=== PATIENT | male | born 1995 | race Two or more races ===

== ENCOUNTER 2020-11-17 13:29 | Emergency (ER) | payer BC, OTHER ==
[~2020-11-17] VITALS: Ht 167.6 cm; Wt 88.6 kg
--- NOTE | 2020-11-17 14:11 | ED.ADGEN ---
Past Medical History Past Medical History: No Pertinent History Past Surgical History: No Surgical History Smoking Status: Never Smoker Alcohol Use: Occasionally Drug Use: None General Adult EDM: Chief Complaint: CHEST WALL PAIN HPI: HPI: Patient is a 24 year old male who presents with chest pain going on for the past 8 weeks. In the emerged from today because he had appointment with his primary care provider yesterday which was canceled. Patient states the pain is worse when he is laying down and exacerbated by trying to sit up. States the pain is not always there. Denies any palpitation or shortness of breath. Patient denies any trauma. Has been taking a adrenal gland supplements recommended by his chiropractor. Patient states he was told in August that his adrenal glands were not functioning properly. Denies any trauma to the chest. The pain is central. Denies any lower extremity edema, syncope, lightheadedness, exercise intolerance. States he has been more anxious and stressed recently since college. Denies any tobacco, alcohol, drug use. Family history of diabetes, no significant family history of heart disease. Review of Systems: Review of Systems: All other systems within normal limits except for as noted in the HPI Allergies: Allergies: Allergies Coded Allergies Type Severity Reaction Last Updated Verified No Known Drug Allergies 08/22/14 No Physical Exam: PE: Constitutional: Well developed, well nourished, no acute distress, non-toxic appearance. [] HENT: Normocephalic, atraumatic, bilateral external ears normal, nose normal. [] Eyes: PERRLA, conjunctiva normal, no discharge. [] Neck: No rigidity, supple, no stridor. [] Cardiovascular: Tachycardic, regular rhythm, brisk cap refill [] Lungs & Thorax: Non labored symmetric respirations, no tachypnea or respiratory distress. Lungs clear to auscultation [] Abdomen: Soft, nondistended. Skin: Warm, dry, no erythema, no rash. [] Back: Unremarkable Extremities: No deformities, range of motion grossly intact, no lower extremity edema [] Neurologic: Alert and oriented X 3, no focal deficits noted. [] Psychologic: Affect normal, judgement normal, mood normal. [] Current Patient Data: Labs: Laboratory Tests Test 11/17/20 14:10 White Blood Count 11.5 x10^3/uL (4.0-11.0) H Red Blood Count 4.75 x10^6/uL (4.30-5.70) Hemoglobin 14.9 g/dL (13.0-17.5) Hematocrit 42.4 % (39.0-53.0) Mean Corpuscular Volume 89 fL (79-100) Mean Corpuscular Hemoglobin 31 pg (25-35) Mean Corpuscular Hemoglobin Concent 35 g/dL (31-37) Red Cell Distribution Width 13.3 % (11.5-14.5) Platelet Count 335 x10^3/uL (140-400) Neutrophils (%) (Auto) 73 % (31-73) Lymphocytes (%) (Auto) 18 % (24-48) L Monocytes (%) (Auto) 9 % (0-9) Eosinophils (%) (Auto) 1 % (0-3) Basophils (%) (Auto) 1 % (0-3) Neutrophils # (Auto) 8.4 x10^3/uL (1.8-7.7) H Lymphocytes # (Auto) 2.0 x10^3/uL (1.0-4.8) Monocytes # (Auto) 1.0 x10^3/uL (0.0-1.1) Eosinophils # (Auto) 0.1 x10^3/uL (0.0-0.7) Basophils # (Auto) 0.1 x10^3/uL (0.0-0.2) D-Dimer (Vonda) < 0.27 ug/mlFEU Sodium Level 140 mmol/L (136-145) Potassium Level 4.2 mmol/L (3.5-5.1) Chloride Level 105 mmol/L (98-107) Carbon Dioxide Level 30 mmol/L (21-32) Anion Gap 5 (6-14) L Blood Urea Nitrogen 10 mg/dL (8-26) Creatinine 0.9 mg/dL (0.7-1.3) Estimated GFR (Cockcroft-Gault) 104.6 BUN/Creatinine Ratio 11 (6-20) Glucose Level 126 mg/dL (70-99) H Calcium Level 9.3 mg/dL (8.5-10.1) Phosphorus Level 3.4 mg/dL (2.6-4.7) Magnesium Level 2.1 mg/dL (1.8-2.4) Total Bilirubin 0.5 mg/dL (0.2-1.0) Aspartate Amino Transferase (AST) 36 U/L (15-37) Alanine Aminotransferase (ALT) 82 U/L (16-63) H Alkaline Phosphatase 111 U/L (46-116) Troponin I Quantitative < 0.017 ng/mL (0.000-0.055) KY-Ezb-G-Type Natriuretic Peptide 8 pg/mL (0-124) Total Protein 7.3 g/dL (6.4-8.2) Albumin 4.0 g/dL (3.4-5.0) Albumin/Globulin Ratio 1.2 (1.0-1.7) Laboratory Tests 11/17/20 14:10 Laboratory Tests 11/17/20 14:10 Vital Signs: Vital Signs Date Time Temp Pulse Resp B/P (MAP) Pulse Ox O2 Delivery O2 Flow Rate FiO2 11/17/20 13:32 98.5 113 17 152/79 (103) 100 Room Air 98.5 EKG: EKG: Sinus rhythm, heart rate 100 bpm, normal axis, no ST elevation pression, no ectopy. [] Heart Score: C/O Chest Pain: Yes HEART Score for Chest Pain: HEART Score for Chest Pain Response (Comments) Value History Slighlty/Non-Suspicious 0 ECG Normal 0 Age < 45 0 Risk Factors No Risk Factors 0 Troponin < Normal Limit 0 Total 0 Risk Factors: Risk Factors: DM, Current or recent (<one month) smoker, HTN, HLP, family history of CAD, obesity. Risk Scores: Score 0 - 3: 2.5% MACE over next 6 weeks - Discharge Home Score 4 - 6: 20.3% MACE over next 6 weeks - Admit for Clinical Observation Score 7 - 10: 72.7% MACE over next 6 weeks - Early Invasive Strategies Radiology/Procedures: Radiology/Procedures: Exam performed: 2 views of the chest. Indication: Reason: chest pain / Spl. Instructions: / History: Date of Service: 11/17/2020 4:13 PM. Comparison : None available Findings: PA and lateral radiographs of the chest reveal a normal cardiomediastinal contour. The lungs are clear. No pleural fluid is seen. The visualized osseous structures are unremarkable. Impression: No acute cardiopulmonary process seen. [] Course & Med Decision Making: Course & Med Decision Making Pertinent Labs and Imaging studies reviewed. (See chart for details) [] Dragon Disclaimer: Dragon Disclaimer: This electronic medical record was generated, in whole or in part, using a voice recognition dictation system. Departure Departure Impression: Primary Impression: Chest wall pain Disposition: 01 DC HOME SELF CARE/HOMELESS Condition: STABLE Referrals: KULWANT RAMON MD Patient Instructions: Chest Pain (Nonspecific) Scripts Meloxicam (MELOXICAM) 15 Mg Tablet 15 MG PO DAILY for pain for 10 Days, #10 TAB Prov: CAYLA SCOTT MD 11/17/20 CAYLA SCOTT MD Nov 17, 2020 14:11
[2020-11-17 14:18] LABS: BASO # 0.1 x10^3/uL (0.0-0.2); BASO % 1 % (0-3); EOS # 0.1 x10^3/uL (0.0-0.7); EOS % 1 % (0-3); HEMATOCRIT 42.4 % (39.0-53.0); HEMOGLOBIN 14.9 g/dL (13.0-17.5); LYMPH % 18 % (24-48); MEAN CORPUSCULAR HEMOGLOBIN 31 pg (25-35); MEAN CORPUSCULAR HGB CONC 35 g/dL (31-37); MEAN CORPUSCULAR VOLUME 89 fL (79-100); MONO % 9 % (0-9); NEUT # 8.4 x10^3/uL (1.8-7.7); NEUT % 73 % (31-73); PLATELET COUNT 335 x10^3/uL (140-400); RED BLOOD COUNT 4.75 x10^6/uL (4.30-5.70); RED CELL DISTRIBUTION WIDTH 13.3 % (11.5-14.5); WHITE BLOOD COUNT 11.5 x10^3/uL (4.0-11.0)
[2020-11-17 14:39] LABS: CALCIUM 9.3 mg/dL (8.5-10.1); CREATININE 0.9 mg/dL (0.7-1.3); GFR 104.6; POTASSIUM 4.2 mmol/L (3.5-5.1)
[2020-11-17 14:45] LABS: ALBUMIN/GLOBULIN RATIO 1.2 (1.0-1.7); MAGNESIUM 2.1 mg/dL (1.8-2.4); PHOSPHORUS 3.4 mg/dL (2.6-4.7); TOTAL BILIRUBIN 0.5 mg/dL (0.2-1.0); TOTAL PROTEIN 7.3 g/dL (6.4-8.2)
--- NOTE | 2020-11-17 16:40 | RAD ---
Exam performed: 2 views of the chest. Indication: Reason: chest pain / Spl. Instructions: / History: Date of Service: 11/17/2020 4:13 PM. Comparison : None available Findings: PA and lateral radiographs of the chest reveal a normal cardiomediastinal contour. The lungs are natan r. No pleural fluid is seen. The visualized osseous structures are unremarkable. Impression: No acute cardiopulmonary process seen. Electronically signed by: Corina Gonzalez MD (11/17/2020 4:38 PM) [facility]
[2020-11-17] MEDS ORDERED: MELO15TA23 PO (16:54)
[2020-11-17 17:09] VITALS: BP 134/81
--- NOTE | 2020-11-19 07:21 | EKG ---
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
== END 2020-11-17 17:21 | disposition home or self-care (01) ==
LOC: ER 13:29
DX: R07.89 Other chest pain (principal)
CPT/HCPCS: 36415; 71046; 80053; 83735; 83880; 84100; 84484; 85025; 85379; 93005; 99285